=== PATIENT | male | born 1950 | race Caucasian/White ===

== ENCOUNTER 2018-06-02 11:12 | Day surgery (SDC) | payer MEDICARE, MEDICAID ==
[2018-06-02] MEDS ORDERED: LIDOcaine 1% 30ml preserv. free vial SQ STA (11:30)
[2018-06-02 11:35] VITALS: BP 119/74
[2018-06-02] MEDS ORDERED: HYDR-4353 PO (12:47)
[2018-06-02] MEDS ORDERED: METH5TAB PO (12:47)
[2018-06-02] MEDS ORDERED: NAPR-56 PO (12:47)
--- NOTE | 2018-06-02 14:30 | NUR ---
ULTRASOUND DONE FOR POSSIBLE THORACENTESIS. NO PLEURAL EFFUSION PER DR. EILEEN BAI TAP. PATIENT'S THORA WAS CANCELED AND PATIENT DISCHARGED HOME. NO DISTRESS NOTED. ALL BELONGINGS WITH PATIENT UPON DISCHARGE.
== END 2018-06-02 14:30 | disposition home or self-care (01) ==
LOC: SSTAY O 11:12
PROVIDERS: ATTEND Radiology Diagnostic Radiology
DX: J90 Pleural effusion, not elsewhere classified (principal); I10 Essential (primary) hypertension; C34.92 Malignant neoplasm of unspecified part of left bronchus or lung; Z86.73 Personal history of transient ischemic attack (TIA), and cerebral infarction without residual deficits; Z79.899 Other long term (current) drug therapy
CPT/HCPCS: 76604; J3490

== ENCOUNTER 2019-02-02 07:22 | Day surgery (SDC) | payer MEDICARE, MEDICAID ==
[~2019-02-02] VITALS: Ht 172.7 cm; Wt 44.0 kg
[2019-02-02] VITALS (11 sets, daily range): BP systolic 103–154; BP diastolic 52–90
[~2019-02-02 07:22] MED LIST: HYDR-4353 PO; METH5TAB PO; NAPR-56 PO
[2019-02-02] MEDS ORDERED: normal saline 1000ml 1,000 ML IV SCH (07:45)
[2019-02-02 08:29] LABS: BASOPHILS # (AUTO) 0.1 X10'3 (0-0.2); BASOPHILS % (AUTO) 0.7 % (0-1); EOSINOPHILS # (AUTO) 0.1 X10'3 (0-0.9); EOSINOPHILS % (AUTO) 1.2 % (0-6); HEMATOCRIT 30.3 % (42.0-52.0); HEMOGLOBIN 10.1 g/dl (14.0-17.9); LYMPHOCYTES # (AUTO) 0.5 X10'3 (1.1-4.8); LYMPHOCYTES % (AUTO) 6.5 % (21-51); MEAN CORPUSCULAR HEMOGLOBIN 30.5 PG (27.0-31.0); MEAN CORPUSCULAR HGB CONC 33.3 g/dL (33.0-36.5); MEAN CORPUSCULAR VOLUME 91.5 FL (78-98); MONOCYTES # (AUTO) 0.8 X10'3 (0-0.9); MONOCYTES % (AUTO) 10.3 % (2-12); NEUTROPHILS # (AUTO) 6.7 X10'3 (1.8-7.7); NEUTROPHILS % (AUTO) 81.3 % (42-75); PLATELET COUNT 319 X10'3 (140-440); RED BLOOD COUNT 3.31 X10'6 (4.70-6.10); RED CELL DISTRIBUTION WIDTH 15.5 % (11.5-14.5); WHITE BLOOD COUNT 8.2 X10'3 (4.5-11.0)
[2019-02-02] MEDS ORDERED: DULO-31 PO (08:34)
[2019-02-02] MEDS ORDERED: PROC-8 PO (08:34)
[2019-02-02] MEDS ORDERED: PROM25TA14 PO (08:34)
[2019-02-02] MEDS ORDERED: MORP60TA77 PO (08:34)
[2019-02-02] MEDS ORDERED: CARB-87 PO (08:34)
[2019-02-02 08:44] LABS: ALBUMIN 2.4 G/DL (3.4-5.0); ANION GAP 4 (8-16); BLOOD UREA NITROGEN 14 MG/DL (7-18); BUN/CREATININE RATIO 16.3 (5.4-32.0); CHLORIDE 99 MMOL/L (99-107); CREATININE 0.86 MG/DL (0.60-1.10); GLUCOSE 85 MG/DL (70-104); SODIUM 137 MMOL/L (135-145); TOTAL CARBON DIOXIDE 34.4 MMOL/L (24-32); eGFR 88 ML/MIN
[2019-02-02 08:47] LABS: POTASSIUM 3.6 MMOL/L (3.5-5.1)
[2019-02-02] MEDS ORDERED: fentaNYL/PF 50MCG/1 ML 2ML syringe IV PRN (08:50)
[2019-02-02] MEDS ORDERED: midazolam 2 mg/2 ml injection IV PRN (08:50)
[2019-02-02] MEDS ORDERED: LIDOcaine 1% (10mg/ml) 2ml vial SQ ONE (08:50)
[2019-02-02 08:51] LABS: CALCIUM 12.4 MG/DL (8.5-10.1)
[2019-02-02] MEDS ORDERED: midazolam 2 mg/2 ml injection ONE (08:56)
[2019-02-02] MEDS ORDERED: fentaNYL/PF 50MCG/1 ML 2ML syringe ONE (08:56)
[2019-02-02] MEDS ORDERED: gelatin sponge, absorbable (Gelfoam 12-7MM) sponge TP ONE (09:33)
== END 2019-02-02 11:10 | disposition home or self-care (01) ==
LOC: SSTAY O 07:22
PROVIDERS: ATTEND Radiology Vascular & Interventional Radiology
DX: R22.2 Localized swelling, mass and lump, trunk (principal); C44.529 Squamous cell carcinoma of skin of other part of trunk; Z85.118 Personal history of other malignant neoplasm of bronchus and lung; Z98.890 Other specified postprocedural states; F17.210 Nicotine dependence, cigarettes, uncomplicated
CPT/HCPCS: 20206; 36415; 77012; 80048; 85025; 85610; 88341; 88342; J2250; J3010; 88305; 88360; J7030